=== PATIENT | female | born 1985 | race Caucasian/White ===

== ENCOUNTER 2023-01-27 08:51 | Emergency (ER) | payer BC, OTHER ==
[~2023-01-27] VITALS: Ht 162.6 cm; Wt 86.2 kg
[2023-01-27 10:54] VITALS: BP 121/77; PULSE 75; RESP 17; TEMP 98.2; O2SAT 99
[2023-01-27] MEDS ORDERED: CEPH500C PO (11:51)
[2023-01-27] MEDS ORDERED: IBUP1TAB5 PO (11:51)
[2023-01-27] MEDS ORDERED: cefTRIAXone SOD 1,000 MG VL IM ONE (12:00)
[2023-01-27] MEDS ORDERED: KETOROLAC TROMETH 60MG/2ML VIAL IM ONE (12:00)
== END 2023-01-27 12:16 | disposition home or self-care (01) ==
LOC: ER 08:51
DX: L02.212 Cutaneous abscess of back [any part, except buttock and flank] (principal); G43.909 Migraine, unspecified, not intractable, without status migrainosus; F10.129 Alcohol abuse with intoxication, unspecified
CPT/HCPCS: 96372; 99284; J0696; J1885